=== PATIENT | male | born 1955 | race Caucasian/White ===

== ENCOUNTER 2020-03-17 07:00 | Outpatient (NON) | payer MEDICARE, SELFPAY ==
[2020-03-17 18:01] LABS: SARS-CoV-2 RNA PCR Negative
== END 2020-03-17 07:01 ==
PROVIDERS: PCP Family Medicine; Visit Provider Family Medicine
DX: Z20.828 Contact with and (suspected) exposure to other viral communicable diseases (principal)
CPT/HCPCS: 87635; C9803; U0003

== ENCOUNTER 2022-03-30 08:25 | Emergency (ER) | payer MEDICARE, SELFPAY ==
[2022-03-30 08:32] VITALS: BP 138/66; PULSE 67; RESP 20; TEMP 36.7; O2SAT 97
--- NOTE | 2022-03-30 08:42 | ED.GENADULT ---
HPI - General Adult General Chief complaint: Skin/Abscess/Foreign Body Stated complaint: Left Knee Laceration Time Seen by Provider: 03/30/22 08:43 Source: patient Mode of arrival: ambulatory Limitations: no limitations History of Present Illness HPI narrative: 67-year-old male patient presents to the [facility] with complaints of a laceration to the left knee that occurred yesterday. Patient states he was out doing yard work using a chainsaw and thinks that some of the sunflower stocks that he was cutting down scraped his knee causing a laceration. Patient states he did put some Neosporin on it yesterday and put a flap of skin back over the laceration. Patient states he is coming in today because he is getting ready to go to [place] in 2 weeks 1 to make sure that he is not infected or can prevent an infection in case it occurs. Patient unaware of when his last tetanus shot was. Related Data Home Medications Medication Instructions Recorded Confirmed aspirin 81 mg tablet,delayed 81 mg PO DAILY 06/27/19 10/02/21 release (Adult Low Dose Aspirin) cholecalciferol (vitamin D3) 50 2,000 unit PO DAILY 06/27/19 10/02/21 mcg (2,000 unit) tablet fexofenadine 180 mg tablet 180 mg PO DAILY 06/27/19 10/02/21 flaxseed oil 1,000 mg capsule 1,000 mg PO DAILY 06/27/19 10/02/21 fluticasone propionate 50 2 spray intranasal DAILY 06/27/19 10/02/21 mcg/actuation nasal spray,suspension (Allergy Relief (fluticasone)) melatonin 10 mg tablet 10 mg PO DAILY 06/27/19 10/02/21 vit C 250 mg-vit E 90 mg-zinc 40 1 tablet PO BID 06/27/19 10/02/21 mg-copper 1 [id number] capsule (PreserVision AREDS-2) Allergies Allergy/AdvReac Type Severity Reaction Status Date / Time Sulfa (Sulfonamide Allergy Unknown Skin Verified 03/30/22 08:56 Antibiotics) Reaction Review of Systems Review of Systems: CONSTITUTIONAL: Denies fever, chills, or sweats. EYES: Denies visual changes, redness, or discharge. ENT: Denies rhinorrhea, congestion, sore throat, or otalgia. CARDIOVASCULAR: Denies chest pain, palpitations, or edema. RESPIRATORY: Denies cough or dyspnea. GASTROINTESTINAL: Denies abdominal pain, nausea, vomiting, or diarrhea. GENITOURINARY: Denies dysuria or hematuria. SKIN: Denies rash or itching. Positive laceration left knee MUSCULOSKELETAL: Denies back pain, joint pain, or myalgia. NEUROLOGIC: Denies headache, numbness, or weakness. PSYCHIATRIC: Denies anxiety or depression. [facility] Past Medical History Medical History History of coronary artery disease History of hyperlipidemia History of hypertension Obesity (BMI 30-39.9) Surgical History Surgical History History of cardiac catheterization Stented coronary artery (~03/2008) Family History Family History Mother Hypertension Cerebrovascular accident Family history of elevated blood lipids, Onset Age: 83 Family history of cardiovascular disease, Onset Age: 83 Family history of coronary artery disease, Onset Age: 83 Father Acute myocardial infarction Family history of lung cancer Family history of elevated blood lipids, Onset Age: 63 Family history of cardiovascular disease, Onset Age: 63 Family history of coronary artery disease, Onset Age: 63 Sibling Carcinoma of colon Family history of malignant neoplasm of thyroid Other Family history of hypercholesterolemia Social History Social History Smoking end date: 08/03/82 Alcohol intake: current Comments At the time of my signature I agree with nursing past medical history, surgical, social, and family history. There is no relevant family history pertinent to the presenting complaint. Exam Narrative: GENERAL: Well-appearing, well-nourished, and in no acute
[2022-03-30] MEDS: TETANUS,DIPHTHERIA,AC PERTUSSIS ADULT (0.5 ML) BOOSTRIX IM (08:54)
== END 2022-03-30 09:01 | disposition home or self-care (01) ==
PROVIDERS: Emergency Provider Nurse Practitioner Family; PCP Family Medicine
DX: S81.012A Laceration without foreign body, left knee, initial encounter (principal); W45.8XXA Other foreign body or object entering through skin, initial encounter; Y93.H2 Activity, gardening and landscaping; Z23 Encounter for immunization; I25.10 Atherosclerotic heart disease of native coronary artery without angina pectoris; E78.5 Hyperlipidemia, unspecified; I10 Essential (primary) hypertension; Z95.5 Presence of coronary angioplasty implant and graft; Z87.891 Personal history of nicotine dependence
CPT/HCPCS: 90471; 90715; 99213; G0463

== ENCOUNTER 2023-02-24 08:07 | Emergency (ER) | payer MEDICARE, OTHER, SELFPAY ==
--- NOTE | 2023-02-24 08:12 | ED.SKABFB ---
HPI - Skin/Abscess/Foreign Bdy General Chief complaint: Wound/Laceration Stated complaint: left leg scrape Source: patient and RN notes reviewed Mode of arrival: ambulatory Limitations: no limitations History of Present Illness HPI narrative: Patient is a 68-year-old male who presents to the [facility] with request for wound check. Patient states that he was caring a piece of plywood 2 weeks ago, and accidentally dropped the plywood. Patient states that he was wearing jeans but it is great his left anterior lower leg. Patient states that over the past few days he noticed increased redness surrounding the scabbed wounds. He denies recent drainage from the sites. Denies recent fever. Related Data Home Medications Medication Instructions Recorded Confirmed aspirin 81 mg tablet,delayed 81 mg PO DAILY 06/27/19 10/10/22 release (Adult Low Dose Aspirin) cholecalciferol (vitamin D3) 50 2,000 unit PO DAILY 06/27/19 10/10/22 mcg (2,000 unit) tablet fexofenadine 180 mg tablet 180 mg PO DAILY 06/27/19 10/10/22 flaxseed oil 1,000 mg capsule 1,000 mg PO DAILY 06/27/19 10/10/22 fluticasone propionate 50 2 spray intranasal DAILY 06/27/19 10/10/22 mcg/actuation nasal spray,suspension (Allergy Relief (fluticasone)) melatonin 10 mg tablet 10 mg PO DAILY 06/27/19 10/10/22 vit C 250 mg-vit E 90 mg-zinc 40 1 tablet PO BID 06/27/19 10/10/22 mg-copper 1 [id number] capsule (PreserVision AREDS-2) Allergies Allergy/AdvReac Type Severity Reaction Status Date / Time Sulfa (Sulfonamide Allergy Unknown Chills Verified 02/24/23 08:20 Antibiotics) Review of Systems Review of Systems: CONSTITUTIONAL: Denies fever, chills, or sweats. EYES: Denies visual changes, redness, or discharge. ENT: Denies otalgia and sore throat CARDIOVASCULAR: Denies chest pain, palpitations, or edema. RESPIRATORY: Denies cough or dyspnea. GASTROINTESTINAL: Denies abdominal pain, nausea, vomiting, or diarrhea. GENITOURINARY: Denies dysuria or hematuria. SKIN: Denies rash or itching. Left anterior lower leg scabbed wounds with surrounding redness. MUSCULOSKELETAL: Denies back pain, joint pain, or myalgia. NEUROLOGIC: Denies headache, numbness, or weakness. Pertinent positives per HPI. [facility] Past Medical History Medical History History of coronary artery disease History of hyperlipidemia History of hypertension Obesity (BMI 30-39.9) Surgical History Surgical History History of cardiac catheterization Stented coronary artery (~03/2008) Family History Family History Mother Hypertension Cerebrovascular accident Family history of elevated blood lipids, Onset Age: 83 Family history of cardiovascular disease, Onset Age: 83 Family history of coronary artery disease, Onset Age: 83 Father Acute myocardial infarction Family history of lung cancer Family history of elevated blood lipids, Onset Age: 63 Family history of cardiovascular disease, Onset Age: 63 Family history of coronary artery disease, Onset Age: 63 Sibling Carcinoma of colon Family history of malignant neoplasm of thyroid Other Family history of hypercholesterolemia Social History Social History Smoking status: Former smoker Smoking end date: 08/03/82 Alcohol intake: current Lack of Transportation: No Lack of Food: Never True Current Housing: I Have Housing Concerned About Future Housing: No Difficulty Paying Gas/Electric Bills: No Difficulty Paying for Meds: No Currently Unemployed: No Education: High School Diploma/GED Difficulty w/ Childcare or Family Care: No Comments At the time of my signature, I reviewed and agree with the nursing past medical, surgical, social, an
[2023-02-24 08:16] VITALS: BP 128/68; PULSE 73; RESP 18; TEMP 36.8; O2SAT 96
== END 2023-02-24 08:59 | disposition home or self-care (01) ==
PROVIDERS: Emergency Provider Nurse Practitioner; PCP Family Medicine
DX: L03.116 Cellulitis of left lower limb (principal); Z87.891 Personal history of nicotine dependence; I25.10 Atherosclerotic heart disease of native coronary artery without angina pectoris; E78.5 Hyperlipidemia, unspecified; I10 Essential (primary) hypertension; E66.9 Obesity, unspecified; Z68.33 Body mass index [BMI] 33.0-33.9, adult; Z79.82 Long term (current) use of aspirin
CPT/HCPCS: 99213; G0463

== ENCOUNTER 2023-08-14 00:51 | Day surgery (SDC) | payer MEDICARE, OTHER, SELFPAY ==
[2023-07-20 13:30] VITALS: BMI 34.0
--- NOTE | 2023-08-12 10:42 | SUR.PREOP ---
Patient called regarding upcoming procedure. Reviewed preop instructions, appointment times, and procedure prep.
--- NOTE | 2023-08-13 17:39 | PM.HPGS ---
History of Present Illness History of Present Illness Consent: Risks, benefits, and alternatives have been discussed and questions answered. Patient agrees to proceed with procedure. Chief complaint: hx of colon polyps Narrative: Charli Rudolph is a 68 year old male referred for colon cancer screening. His sister had colon cancer. Also he has had polyps removed several times including the last examination about 5 years ago. Review of Systems Review of Systems: All systems reviewed & are unremarkable except as noted in HPI and below PMFSH Past Medical History Medical History History of coronary artery disease History of hyperlipidemia History of hypertension Obesity (BMI 30-39.9) Surgical History Surgical History History of cardiac catheterization Stented coronary artery (~03/2008) Family History Family History Mother Hypertension Cerebrovascular accident Family history of elevated blood lipids, Onset Age: 83 Family history of cardiovascular disease, Onset Age: 83 Family history of coronary artery disease, Onset Age: 83 Father Acute myocardial infarction Family history of lung cancer Family history of elevated blood lipids, Onset Age: 63 Family history of cardiovascular disease, Onset Age: 63 Family history of coronary artery disease, Onset Age: 63 Sibling Carcinoma of colon Family history of malignant neoplasm of thyroid Other Family history of hypercholesterolemia Social History Social History Smoking packs per day: 0.5 Smoking cigarettes per day: 10.0 Years smoked: 5 Smoking pack-years: 2.50 Smoking status: Former smoker Tobacco type: cigarettes Smoking end date: 08/03/82 Alcohol intake: current Substance use type: does not use Lack of Transportation: No Lack of Food: Never True Current Housing: I Have Housing Concerned About Future Housing: No Difficulty Paying Gas/Electric Bills: No Difficulty Paying for Meds: No Currently Unemployed: No Education: High School Diploma/GED Difficulty w/ Childcare or Family Care: No Living arrangements: with family Spiritual care concerns: No Meds Home Medications and Allergies Home Medications Medication Instructions Recorded Confirmed Type aspirin 81 mg tablet,delayed 81 mg PO DAILY 06/27/19 08/14/23 History release (Adult Low Dose Aspirin) cholecalciferol (vitamin D3) 50 2,000 unit PO DAILY 06/27/19 08/14/23 History mcg (2,000 unit) tablet fexofenadine 180 mg tablet 180 mg PO DAILY 06/27/19 08/14/23 History flaxseed oil 1,000 mg capsule 1,000 mg PO DAILY 06/27/19 08/14/23 History fluticasone propionate 50 2 spray intranasal DAILY 06/27/19 08/14/23 History mcg/actuation nasal spray,suspension (Allergy Relief (fluticasone)) melatonin 10 mg tablet 10 mg PO DAILY 06/27/19 08/14/23 History vit C 250 mg-vit E 90 mg-zinc 40 1 tablet PO BID 06/27/19 08/14/23 History mg-copper 1 [id number] capsule (PreserVision AREDS-2) sildenafil 100 mg tablet (Viagra) 100 mg PO DAILY PRN sexual 04/22/23 08/14/23 Rx activity #30 tabs atorvastatin 20 mg tablet 20 mg PO DAILY #90 tabs 08/05/23 08/14/23 Rx lisinopril 10 mg tablet 10 mg PO DAILY #90 tabs 08/05/23 08/14/23 Rx Allergies Allergy/AdvReac Type Severity Reaction Status Date / Time Sulfa (Sulfonamide Allergy Unknown Chills Verified 08/14/23 07:06 Antibiotics) Exam Resp: Auscultation: clear to auscultation bilaterally Cardio: Rate: regular rate Rhythm: regular rhythm GI: GI Palp: Yes Soft to palpation and No Tenderness to palpation present (GI) Assessment and Plan Assessment and plan (1) Colon cancer screening: Code(s): Z12.11 - Encounter for screening for malignant ne
[2023-08-14 07:07] VITALS: BP 135/77; PULSE 78; RESP 18; TEMP 28.9; O2SAT 93; BMI 35.2
[2023-08-14] MEDS: LACTATED RINGERS 1,000 ML 150 ML IV CONT (07:27)
--- NOTE | 2023-08-14 07:30 | WPDANESEPPF ---
Anes - Initial Pre Proc Eval Procedure: Operation Date: 08/14/23 08:00 Proposed Procedures p Colonoscopy - Jeffrey Felix MD Date/Time: 08/14/23 07:30 Surgeon: Jeffrey Felix MD Pre Op Diagnosis: hx of colon polyps Patient Data Age: 68 Gender: M Height: 1.83 m Weight: 117.9 kg Last Vital Signs Temp 84.1 F L 08/14/23 07:07 Pulse 78 08/14/23 07:07 Resp 18 08/14/23 07:07 BP 135/77 08/14/23 07:07 Pulse Ox 93 08/14/23 07:07 O2 Del Method Room Air 08/14/23 07:07 Allergies Allergy/AdvReac Type Severity Reaction Status Date / Time Sulfa (Sulfonamide Allergy Unknown Chills Verified 08/14/23 07:06 Antibiotics) Home Medications Medication Instructions Recorded Confirmed Type aspirin 81 mg tablet,delayed 81 mg PO DAILY 06/27/19 08/14/23 History release (Adult Low Dose Aspirin) cholecalciferol (vitamin D3) 50 2,000 unit PO DAILY 06/27/19 08/14/23 History mcg (2,000 unit) tablet fexofenadine 180 mg tablet 180 mg PO DAILY 06/27/19 08/14/23 History flaxseed oil 1,000 mg capsule 1,000 mg PO DAILY 06/27/19 08/14/23 History fluticasone propionate 50 2 spray intranasal DAILY 06/27/19 08/14/23 History mcg/actuation nasal spray,suspension (Allergy Relief (fluticasone)) melatonin 10 mg tablet 10 mg PO DAILY 06/27/19 08/14/23 History vit C 250 mg-vit E 90 mg-zinc 40 1 tablet PO BID 06/27/19 08/14/23 History mg-copper 1 [id number] capsule (PreserVision AREDS-2) sildenafil 100 mg tablet (Viagra) 100 mg PO DAILY PRN sexual 04/22/23 08/14/23 Rx activity #30 tabs atorvastatin 20 mg tablet 20 mg PO DAILY #90 tabs 08/05/23 08/14/23 Rx lisinopril 10 mg tablet 10 mg PO DAILY #90 tabs 08/05/23 08/14/23 Rx Patient hx anesthesia problems: none Family hx anesthesia problems: none Results Review: All pre-operative results and documents have been reviewed as part of the pre-operative evaluation. [facility] Past Medical History Medical History History of coronary artery disease History of hyperlipidemia History of hypertension Obesity (BMI 30-39.9) Surgical History Surgical History History of cardiac catheterization Stented coronary artery (~03/2008) Family History Family History Mother Hypertension Cerebrovascular accident Family history of elevated blood lipids, Onset Age: 83 Family history of cardiovascular disease, Onset Age: 83 Family history of coronary artery disease, Onset Age: 83 Father Acute myocardial infarction Family history of lung cancer Family history of elevated blood lipids, Onset Age: 63 Family history of cardiovascular disease, Onset Age: 63 Family history of coronary artery disease, Onset Age: 63 Sibling Carcinoma of colon Family history of malignant neoplasm of thyroid Other Family history of hypercholesterolemia Social History Social History Smoking packs per day: 0.5 Smoking cigarettes per day: 10.0 Years smoked: 5 Smoking pack-years: 2.50 Smoking status: Former smoker Tobacco type: cigarettes Smoking end date: 08/03/82 Alcohol intake: current Substance use type: does not use Lack of Transportation: No Lack of Food: Never True Current Housing: I Have Housing Concerned About Future Housing: No Difficulty Paying Gas/Electric Bills: No Difficulty Paying for Meds: No Currently Unemployed: No Education: High School Diploma/GED Difficulty w/ Childcare or Family Care: No Living arrangements: with family Spiritual care concerns: No Anes - Eval Final PreProcedure Day of Procedure 08/14/23 07:30 Patient weight: obese Heart: regular rate and rhythm Lungs: clear to auscultation Airway: Mallampati scale class II Neurological: alert and or
[2023-08-14 08:10] VITALS: BP 102/61; PULSE 82; RESP 20; O2SAT 97
[2023-08-14 08:20] VITALS: BP 112/77; PULSE 83; RESP 20; O2SAT 97
[2023-08-14 08:30] VITALS: BP 135/78; PULSE 80; RESP 18; O2SAT 97
== END 2023-08-14 08:35 | disposition home or self-care (01) ==
PROVIDERS: PCP Family Medicine; Referring Provider Nurse Practitioner Family; Visit Provider Internal Medicine Gastroenterology
PROC: 0DJD8ZZ Inspection of Lower Intestinal Tract, Via Natural or Artificial Opening Endoscopic (ICD-10-PCS; CPT 45378; principal; 2023-08-14 08:00)
DX: Z12.11 Encounter for screening for malignant neoplasm of colon (principal); K57.30 Diverticulosis of large intestine without perforation or abscess without bleeding; D12.3 Benign neoplasm of transverse colon; K64.8 Other hemorrhoids; Z80.0 Family history of malignant neoplasm of digestive organs; I25.10 Atherosclerotic heart disease of native coronary artery without angina pectoris; E78.5 Hyperlipidemia, unspecified; I10 Essential (primary) hypertension; E66.9 Obesity, unspecified; Z68.35 Body mass index [BMI] 35.0-35.9, adult; Z95.5 Presence of coronary angioplasty implant and graft; Z87.891 Personal history of nicotine dependence; Z79.82 Long term (current) use of aspirin
CPT/HCPCS: 45380; 45385; 88305; J2704; J7120